=== PATIENT | male | born 1975 | race Caucasian/White ===

== ENCOUNTER 2020-06-20 14:37 | Outpatient (CLI) | payer OTHER, SELFPAY ==
[2020-06-21 13:59] LABS: SARS-CoV-2 RNA PCR Negative
== END 2020-06-20 14:38 | disposition home or self-care (01) ==
PROVIDERS: PCP Family Medicine; Visit Provider Family Medicine
DX: Z20.828 Contact with and (suspected) exposure to other viral communicable diseases (principal)
CPT/HCPCS: 87635; C9803; U0003

== ENCOUNTER 2021-07-09 18:17 | Outpatient (CLI) | payer OTHER, SELFPAY ==
[2021-07-09 18:55] LABS: Hematocrit 45.5 % (40.0-54.0); Hemoglobin 15.5 g/dL (14.0-18.0); Mean Corpuscular HGB Conc 34.1 g/dL (32.0-36.0); Mean Corpuscular Hemoglobin 31.6 pg (27.0-31.0); Mean Corpuscular Volume 92.7 fL (78.0-102.0); Mean Platelet Volume 8.3 fl (8.7-11.0); Platelet Count Result 336 K/mm3 (150-420); Red Blood Count 4.91 M/mm3 (4.70-6.10); Red Cell Distribution Width 11.6 % (11.6-14.4); White Blood Count 6.8 K/mm3 (4.8-10.8)
[2021-07-09 18:58] LABS: Add Urine Microscopic? NO; Appearance Urine Clear (Clear); Bilirubin Urine Negative (Negative); Blood Urine Negative (Negative); Color Urine Light Yellow (Yellow); Glucose Urine UA Negative (Negative); Ketones Urine Negative (Negative); Leukocyte Esterase Ur Negative LEU/UL (Negative); Nitrate Urine Negative (Negative); Protein Urine Negative (Negative); Specific Grav Ur <= 1.005 (1.010-1.020); Urobilinogen Urine 0.2 mg/dL (0.2-1.0)
[2021-07-09 19:21] LABS: Alanine Aminotransferase 35 U/L (16-63); Albumin Level 3.6 g/dL (3.4-5.0); Alkaline Phosphatase 50 U/L (46-116); Anion Gap 9 mmol/L (8-16); Aspartate Amino Transferase 24 U/L (15-37); Bilirubin,Total 0.3 mg/dL (0.00-1.00); Blood Urea Nitrogen 13 mg/dL (7-18); Calcium 8.5 mg/dL (8.5-10.1); Carbon Dioxide 29 mmol/L (21-32); Chloride 101 mmol/L (98-108); Estimated Glomerular Filt Rate > 60; Glucose 91 mg/dL (70-99); Osmolality Calculated 288 mOsm/kg (285-295); Potassium 4.5 mmol/L (3.5-5.1); Sodium 139 mmol/L (136-145); Total Protein 7.5 g/dL (6.4-8.2)
[2021-07-09 19:26] LABS: Band Neutrophils Percent 0 % (0-6); Basophils Percent Manual 3 % (0-1); Eosinophils Absolute Manual 0.06 K/mm3 (0.02-0.5); Eosinophils Percent Manual 1 % (1-6); Lymphocytes Absolute Manual 2.31 K/mm3 (1.1-4.5); Lymphocytes Percent Manual 34 % (18-44); Monocytes Absolute Manual 1.22 K/mm3 (0.1-0.90); Monocytes Percent Manual 18 % (3-9); Neutrophils Absolute Manual 2.99 K/mm3 (1.3-6.7); Neutrophils Percent Manual 44 % (46-73); Platelet Estimate Adequate (Adequate)
[2021-07-09 20:04] LABS: Influenza A QL RT-PCR Negative (Negative); Influenza B QL RT-PCR Negative (Negative); SARS-CoV-2 RNA PCR Negative (Negative)
== END 2021-07-09 18:18 | disposition home or self-care (01) ==
LOC: CHSLAB 18:18
PROVIDERS: PCP Family Medicine; Visit Provider Family Medicine
DX: R50.9 Fever, unspecified (principal); R53.83 Other fatigue; Z20.822 Contact with and (suspected) exposure to COVID-19
CPT/HCPCS: 36415; 80053; 81003; 84443; 85025; 87502; C9803; U0003; U0005

== ENCOUNTER 2021-07-19 08:16 | Outpatient (CLI) | payer OTHER, SELFPAY ==
--- NOTE | ~2021-07-19 | MR_ITS ---
EXAMINATION: MR brain/brain stem wo con DATE: 07/19/2021 09:31 INDICATION: Convulsions TECHNIQUE: Magnetic resonance imaging (MRI) of the brain and brainstem was performed without intraven ous contrast. Sequences included sagittal and axial T1-weighted SE, axial diffusion-weighted FS SE, a xial T2*-weighted GRE, axial T2-weighted FLAIR Propeller, axial T2-weighted Propeller, coronal T2-black ghted FLAIR, and coronal T1-weighted 3D FSPGR. Apparent diffusion coefficient (ADC) maps were created . COMPARISON: None. FINDINGS: There are no areas of restricted diffusion to suggest acute infarction. No intracranial hemorrhage or abnormal intracranial mass lesion. There are scattered areas of nonspecific increased T2-weighted si gnal intensity in the cerebral white matter, predominantly involving the deep and periventricular whi te matter and relatively sparing the temporal lobes. There are approximately 25 lesions on both the l eft and right which is significantly greater than typical for patient age. There are no intraparenchy mal signal abnormalities seen on the other pulse sequences. No godoy matter heterotopias or other evid ent abnormal migrational abnormalities. Bilateral hippocampi are normal and symmetric. The ventricles are symmetric and normal in size. There are no abnormal extra-axial fluid collections. Flow voids ar e seen in the cerebral arteries on the T2-weighted sequences consistent with their expected patency. Mild mucosal thickening in the right sphenoid, left maxillary and bilateral ethmoid sinuses. Visualiz ed orbits and soft tissues are unremarkable. IMPRESSION: 1. Multiple scattered small foci of white matter T2 hyperintensity which are significantly more numer ous than typical for age. Differential would include premature chronic small vessel ischemic disease (especially if the patient has cardiovascular risk factors including diabetes), demyelinating disease such as multiple sclerosis, infection including HIV or Lyme disease, drug abuse or other toxic encep halopathy, vasculitis, or reactive astrocytosis (gliosis) secondary to nonspecific etiology. Reviewed, dictated and finalized at location A. IMPRESSION: 1. Multiple scattered small foci of white matter T2 hyperintensity which are si gnificantly more numerous than typical for age. Differential would include thanh ature chronic small vessel ischemic disease (especially if the patient has card iovascular risk factors including diabetes), demyelinating disease such as mult iple sclerosis, infection including HIV or Lyme disease, drug abuse or other to xic encephalopathy, vasculitis, or reactive astrocytosis (gliosis) secondary to nonspecific etiology.
== END 2021-07-19 08:17 | disposition home or self-care (01) ==
LOC: CHSIMG 08:17
PROVIDERS: PCP Family Medicine; Visit Provider Family Medicine
DX: R56.9 Unspecified convulsions (principal)
CPT/HCPCS: 70551

== ENCOUNTER 2022-06-14 08:42 | Emergency (ER) | payer OTHER, SELFPAY ==
--- NOTE | ~2022-06-14 | XR_ITS ---
EXAMINATION: [id number]_[id number]_CR DATE: 06/14/2022 09:16 INDICATION: Lateral left rib pain post fall TECHNIQUE: A frontal inspiratory view of the chest and 3 views of the left ribs were obtained. COMPARISON: Cervical spine radiographs dated 04/27/2018 FINDINGS: There are 13 paired ribs with bilateral C7 cervical ribs. Instrumented C7-T1 anterior spinal fusion. Nondisplaced fracture of the left eighth (seventh thoracic) rib. Possible additional nondisplaced fra ctures of the left sixth and seventh (fifth and sixth thoracic) ribs. Approximately 2 cm indeterminat e nodular airspace opacity lateral right mid to lower lung zone No other airspace opacities, pleural effusion or pneumothorax. Cardiomediastinal silhouette is normal. IMPRESSION: 1. Nondisplaced left eighth (seventh thoracic) rib fracture with possible additional fractures of the left sixth and seventh ribs. Of note numbering of the ribs is complicated by bilateral cervical ribs at C7 with 12 more caudal paired thoracic ribs. 2. Indeterminate 2 cm nodule in the left mid to lower lung zone which differential would include a br onchogenic carcinoma. Recommend chest CT for further evaluation. Reviewed, dictated and finalized at location A. IMPRESSION: 1. Nondisplaced left eighth (seventh thoracic) rib fracture with possible addit ional fractures of the left sixth and seventh ribs. Of note numbering of the ri bs is complicated by bilateral cervical ribs at C7 with 12 more caudal paired t horacic ribs. 2. Indeterminate 2 cm nodule in the left mid to lower lung zone which different ial would include a bronchogenic carcinoma. Recommend chest CT for further eval uation.
--- NOTE | ~2022-06-14 | CT_ITS ---
EXAMINATION: CT diagnostic chest wo con DATE: 06/14/2022 10:14 INDICATION: right lung nodule, left sided rib fx TECHNIQUE: Computed tomography (CT) of the chest was performed without intravenous contrast. Addition al 3D reconstructions utilizing coronal maximum intensity projection (MIP) were performed. Automated exposure control and iterative reconstruction technique were employed. The dose-length product was 19 3.22 mGy-cm. COMPARISON: None FINDINGS: Mild emphysema. 12 x 11 mm nodule within a cluster of tiny nodules within approximately 2 cm region o f the posterolateral right middle lobe. An additional 2 cm distant in the right middle lobe is an add itional 5 mm nodule. 4 mm right lower lobe nodule. There are a few additional scattered 2 mm smaller nodules in both lungs. No pulmonary edema, pleural effusion or pneumothorax. Heart size is normal. At herosclerotic coronary artery calcification. No pericardial effusion. Thoracic aorta is normal in javon iber. No pathologically enlarged thoracic lymphadenopathy. C6-C7 anterior spinal fusion with plate an d screw fixation. There are bilateral C7 cervical ribs with 12 more caudal paired rib-bearing thoraci c segments. Nondisplaced fractures of the left 6th-8th ribs (fifth-seventh thoracic ribs). IMPRESSION: 1. Cluster of tiny nodules surrounding a larger 12 x 11 mm nodule in the right middle lobe. Appearanc e favors but is not definitive for an infectious/inflammatory etiology. Recommend 8-12 month follow-u p chest CT. Line 2. Nondisplaced fractures of the left 6th-8th ribs (5th-7th thoracic ribs with bilateral paired C7 ce rvical ribs). Reviewed, dictated and finalized at location A. IMPRESSION: 1. Cluster of tiny nodules surrounding a larger 12 x 11 mm nodule in the right middle lobe. Appearance favors but is not definitive for an infectious/inflamma tory etiology. Recommend 8-12 month follow-up chest CT. Line 2. Nondisplaced fractures of the left 6th-8th ribs (5th-7th thoracic ribs with bilateral paired C7 cervical ribs).
[2022-06-14 08:56] VITALS: BP 141/93; PULSE 88; RESP 16; TEMP 36.2; O2SAT 99
--- NOTE | 2022-06-14 09:05 | ED.FALL ---
HPI - Fall General Chief Complaint: Fall Stated Complaint: L sided rib pain after fall Time Seen by Provider: 06/14/22 08:59 Source: patient Mode of arrival: ambulatory Limitations: no limitations History of Present Illness HPI Narrative: Patient is a 46-year-old white male complains of left-sided rib pain after falling last night at home getting into his hot tub. Pain hurts to move and take a deep breath or cough. Denies any shortness of breath nausea vomiting or other symptoms. Did not take anything for pain yet. Denies any loss of consciousness. Dizziness or lightheadedness denied alcohol or illicit drug use. Denies any neck pain or headache. Denies any other injury. Related Data Home Medications Medication Instructions Recorded Confirmed sertraline 100 mg tablet 100 mg PO DAILY 06/14/22 06/14/22 Allergies Allergy/AdvReac Type Severity Reaction Status Date / Time No Known Allergies Allergy Verified 06/14/22 08:59 Review of Systems Review of Systems: All systems reviewed & are unremarkable except as noted in HPI and below Constitutional: Constitutional: Reports no additional constitutional complaints Eyes: Eyes: Reports no additional eye complaints ENT: Reports system reviewed and no additional complaints, except as documented and Reports as per HPI Cardiovascular: Cardiovascular: Reports no additional cardiovascular complaints Respiratory: Respiratory: Reports as per HPI and Reports no additional respiratory complaints Gastrointestinal: Gastrointestinal: Reports no additional gastrointestinal complaints Genitourinary: Genitourinary: Reports no additional male genitourinary complaints Musculoskeletal: Musculoskeletal: Reports no additional musculoskeletal complaints Integumentary/Breasts: Skin/Breast: Reports system reviewed and no additional complaints, except as docu Neurologic: Reports system reviewed and no additional complaints, except as documented, Denies confusion, Denies vertigo, Denies dizziness, Denies syncope, Denies headache(s), Denies focal weakness, Denies numbness and Denies weakness Psychiatric: Psychiatric: Reports no additional psychiatric complaints Endocrine: Endocrine: Reports no additional endocrine complaints Hematologic/Lymphatic: Hematologic/Lymphatic: Reports no additional hematologic/lymphatic complaints [facility] Past Medical History Medical History (Updated 06/14/22 @ 10:55 by Ashwin Roy MD) Anxiety Social History Social History (Updated 06/14/22 @ 09:14 by Ashwin Roy MD) Alcohol intake: current Substance use type: does not use Comments Denies any heart lung or other medical problems. . Exam Narrative: patient is a white male appears in mild distress. Favoring his left side. Head atraumatic normocephalic. Eyes pupils equal round react to light extraocular movements are intact neck is supple without tenderness. Back he has some muscle spasm on the left para scapular region mildly tender. No spinal tenderness. Lungs are clear heart is regular rate and rhythm without murmurs gallops rubs. chest wall Tenderness left lateral chest wall without crepitation or bruising. Abdomen soft nontender extremities no cyanosis clubbing or edema or tenderness he has full range of motion of all extremities. Neurological he is alert and oriented motor and sensory grossly intact. Course Course Emergency Course: Toradol 30 mg im, right ribs and cxr done 13 pairs ribs, left 8th rib fx and 2 cm right lung nodule possible bronchogenic carcinoma Discussed with rad Dr will do CT chest w/o. Discussed with pt as well. Vital Signs Vital signs: Vital Signs Temperature 36.2 C L 06/14/22 08:56 Pulse Rate 88 06/14/22 08:56 Respiratory Rate 16 06/14/22 08:56 Blood Pressure 141/93 H 06/14/22 08:56 Pulse Oximetry 99 06/14/22 08:56 Oxygen Delivery Room Air 06/14/22 08:56 Temperature 36.2 C L 06/14/22 08:56 Pulse Rate 88 06/14/22 08:56
[2022-06-14] MEDS: KETOROLAC 30 MG/ML VIAL (*BKC) IM (09:24)
[2022-06-14 11:15] VITALS: BP 146/95; PULSE 79; RESP 16; TEMP 36.2; O2SAT 98
== END 2022-06-14 11:17 | disposition home or self-care (01) ==
PROVIDERS: Emergency Provider Emergency Medicine
DX: R91.1 Solitary pulmonary nodule (principal); S22.42XA Multiple fractures of ribs, left side, initial encounter for closed fracture; W19.XXXA Unspecified fall, initial encounter
CPT/HCPCS: 71101; 71250; 96372; 99284; J1885

== ENCOUNTER 2023-02-12 22:52 | Emergency (ER) | payer OTHER, SELFPAY ==
[2023-02-12] VITALS (8 sets, daily range): BP systolic 119–138; BP diastolic 81–111; PULSE 81–103; RESP 12–24; TEMP 36.5; O2SAT 93–97
--- NOTE | ~2023-02-12 | XR_ITS ---
EXAMINATION: XR chest 2V DATE: 02/12/2023 23:23 INDICATION: Midline chest pain. Shortness of breath. TECHNIQUE: Frontal and lateral views of the chest were obtained. COMPARISON: Chest CT 06/14/2022, chest radiograph 06/14/2022 FINDINGS: There is a nodule in right middle lobe. No pleural effusion or pneumothorax. The heart size is normal. There are changes of anterior fusion procedure in cervical spine. IMPRESSION: 1. Nodule in right middle lobe, stable from 06/14/2022, probably benign. Noncontrast chest CT is recom mended. Reviewed, dictated and finalized at location E. IMPRESSION: 1. Nodule in right middle lobe, stable from 06/14/2022, probably benign. Noncont rast chest CT is recommended.
--- NOTE | 2023-02-12 22:55 | ECG_ITS ---
Measurements Intervals Superior Rate: 87 P: 71 WA: 177 QRS: 56 QRSD: 89 T: 53 QT: 356 QTc: 431 Interpretive Statements SINUS RHYTHM SHE NORMAL ECG NO PREVIOUS ECG AVAILABLE FOR COMPARISON Electronically Signed On 02-15-2023 9:20:43 CDT by Ashwin Burk M.D.
--- NOTE | 2023-02-12 22:57 | ED.CHESTPAIN ---
HPI - Chest Pain General Chief Complaint: Chest Pain Stated Complaint: trouble breathing; chest pain Time Seen by Provider: 02/12/23 22:56 Source: patient and RN notes reviewed Mode of arrival: ambulatory Limitations: no limitations History of Present Illness complaint: chest pain Onset (ago): hour(s) (2) Timing of current episode: episodic Prior episodes: No Onset: during rest Pain location: substernal Pain radiation: neck Severity: moderate Quality: sharp Relieving factors: nothing Exacerbating factors: nothing Associated symptoms: nausea and dyspnea Treatment prior to arrival: none Risk Factors Coronary artery disease risk factors: smoking history Thoracic aortic dissection risk factors: none Related Data Home Medications Medication Instructions Recorded Confirmed No Home Medications 02/12/23 02/12/23 Allergies Allergy/AdvReac Type Severity Reaction Status Date / Time No Known Allergies Allergy Verified 06/14/22 08:59 Review of Systems Review of Systems: All systems reviewed & are unremarkable except as noted in HPI and below PMFSH Past Medical History Medical History (Updated 02/13/23 @ 00:04 by David Silva MD) Anxiety Social History Social History (Updated 02/12/23 @ 23:03 by David Silva MD) Smoking packs per day: 1 Smoking cigarettes per day: 20.0 Smoking status: Current every day smoker Tobacco type: cigarettes Alcohol intake: current Substance use type: does not use Exam Const: General: healthy appearing, no acute distress and alert Nutritional Appearance: well nourished Orientation/consciousness: patient oriented x3 Limitations: no limitations HENMT: Head: normal to inspection Ears: external ears normal Face/Nose/Sinus: Normal external nose present Face and sinus: normal facial exam Mouth: Yes moist mucous membranes Eyes: Conjunctivae: conjunctivae normal Pupils: Equal, round and reactive pupils present EOM: EOMs intact bilaterally Neck: Neck: normal visual inspection and no lymphadenopathy Resp: Effort & Inspection: normal respiratory effort Auscultation: clear to auscultation bilaterally Cardio: Rate: regular rate Rhythm: regular rhythm GI: GI Palp: Yes Soft to palpation and No Tenderness to palpation present (GI) Auscultation: normal bowel sounds Back/Spine/Pelvis: Cervical Spine: cervical ROM normal Thoracic/Lumbar Spine: thoraco-lumbar ROM normal Skin: General skin exam: normal color Rashes: no rashes Neuro: General: patient oriented x3, moves all extremities, no focal motor deficits and CN's II-XI intact bilaterally Speech: normal speech Gait exam (Neuro): Normal gait present Extrem: General: normal to inspection and no clubbing, cyanosis or edema Psych: Mental Status: mental status grossly normal Affect: Anxious affect present Attitude: cooperative Course Vital Signs Vital signs: Vital Signs Oxygen Delivery Room Air 02/12/23 22:56 Temperature 36.5 C 02/12/23 22:57 Pulse Rate 85 02/12/23 23:45 Respiratory Rate 12 02/12/23 23:45 Blood Pressure 138/81 02/12/23 23:22 Pulse Oximetry 96 02/12/23 23:45 Oxygen Delivery Room Air 02/12/23 22:57 MDM - Chest Pain Differential Diagnosis Differential diagnosis: Likely stable angina, unstable angina pectoris, atypical chest pain, st elevation myocardial infarction, chest pain and other ( Anemia, electrolyte abnormality.) Lab Data Attestation: I reviewed the patient's lab results. 02/12/23 23:07 02/12/23 23:07 Labs: Lab Results 02/12/23 Range/Units 23:07 WBC 9.8 (4.8-10.8) K/mm3 RBC 4.54 L (4.70-6.10) M/mm3 Hgb 14.6 (14.0-18.0) g/dL Hct 43.0 (40.0-54.0) % MCV 94.7 (78.0-102.0) fL MCH 32.2 H (27.0-31.0) pg MCHC 34.0 (32.0-36.0) g/dL RDW 11.6 (11.6-14.4) % Plt Count 306 (150-420) K/mm3 MPV 8.1 L (8.7-11.0) fl Immature Gran % (Auto) 0.4 H (0.0-0.0) % Neut % (Auto) 57.8 (50.0-7
[2023-02-12] MEDS: ASPIRIN 81 MG CHEWABLE TABLET 324 MG PO (23:05)
[2023-02-12 23:11] LABS: Basophils Absolute Auto 0.09 K/mm3 (0.00-0.10); Basophils Percent Auto 0.9 % (0.0-1.0); Eosinophils Absolute Auto 0.52 K/mm3 (0.02-0.50); Eosinophils Percent Auto 5.3 % (1.0-6.0); Hemoglobin 14.6 g/dL (14.0-18.0); Immature Granulocyte Absolute 0.04 K/mm3 (0.00-0.00); Immature Granulocyte Percent A 0.4 % (0.0-0.0); Lymphocytes Absolute Auto 2.63 K/mm3 (1.10-4.50); Lymphocytes Percent Auto 26.9 % (18.0-42.0); Mean Corpuscular Hemoglobin 32.2 pg (27.0-31.0); Mean Corpuscular Volume 94.7 fL (78.0-102.0); Mean Platelet Volume 8.1 fl (8.7-11.0); Monocytes Absolute Auto 0.85 K/mm3 (0.10-0.90); Monocytes Percent Auto 8.7 % (2.0-11.0); Neutrophils Absolute Auto 5.7 K/mm3 (1.7-7.2); Neutrophils Percent Auto 57.8 % (50.0-70.0); Platelet Count Result 306 K/mm3 (150-420); Red Blood Count 4.54 M/mm3 (4.70-6.10); Red Cell Distribution Width 11.6 % (11.6-14.4); White Blood Count 9.8 K/mm3 (4.8-10.8)
[2023-02-12 23:23] LABS: D Dimer 0.19 mg/L (0.19-0.50); INR 0.9; Partial Thromboplastin Time 30.2 SEC (23.90-30.70)
[2023-02-12 23:25] LABS: CRP < 0.5 mg/dL (0.0-0.9)
[2023-02-12 23:28] LABS: Alanine Aminotransferase 27 U/L (16-63); Albumin Level 3.5 g/dL (3.4-5.0); Alkaline Phosphatase 47 U/L (46-116); Anion Gap 11 mmol/L (8-16); Aspartate Amino Transferase 19 U/L (15-37); Bilirubin,Total 0.2 mg/dL (0.00-1.00); Blood Urea Nitrogen 8 mg/dL (7-18); Calcium 8.1 mg/dL (8.5-10.1); Carbon Dioxide 23 mmol/L (21-32); Chloride 98 mmol/L (98-108); Estimated CRCL calculation 115 ml/min; Estimated Glomerular Filt Rate > 60; Glucose 115 mg/dL (70-99); Magnesium 2.1 mg/dL (1.8-2.4); Osmolality Calculated 273 mOsm/kg (285-295); Sodium 132 mmol/L (136-145); Total Protein 6.8 g/dL (6.4-8.2); Troponin I 5.2 ng/L (0.00-60.4)
[2023-02-12] MEDS: POTASSIUM CHLORIDE 20 MEQ PACKET (FOR LIQUID) PO (23:39)
[2023-02-12] MEDS: LORazepam (*CRX) 1 MG TABLET PO (23:39)
== END 2023-02-13 00:11 | disposition home or self-care (01) ==
LOC: CHSED 02-13 00:07
PROVIDERS: Emergency Provider Emergency Medicine
DX: R07.89 Other chest pain (principal); E87.6 Hypokalemia; F17.210 Nicotine dependence, cigarettes, uncomplicated
CPT/HCPCS: 36415; 71046; 80053; 83735; 84484; 85025; 85380; 85610; 85730; 86140; 93005; 99284; A9270

== ENCOUNTER 2023-04-11 09:25 | Emergency (ER) | payer OTHER, SELFPAY ==
--- NOTE | ~2023-04-11 | XR_ITS ---
XR ankle RT min 3V DATE: 04/11/2023 10:07 INDICATION: Fell off of ladder. Pain at distal tibia and fibula TECHNIQUE: 4 views of right ankle COMPARISON: None FINDINGS: The distal tibia and fibula are intact and and the ankle mortise is preserved. No fracture or dislocation of the ankle or disruption of the ankle mortise is detected. There is however a comminuted fracture of the calcaneus. Mild plantar calcaneal enthesopathy. IMPRESSION: Comminuted fracture of the calcaneus Reviewed, dictated and finalized at location A.
--- NOTE | ~2023-04-11 | XR_ITS ---
XR tibia fibula RT 2V DATE: 04/11/2023 10:07 INDICATION: Fell off of ladder. Pain at distal tibia and fibula TECHNIQUE: AP and lateral views COMPARISON: None FINDINGS: There is a comminuted fracture of the calcaneus. No recent fracture or dislocation, periosteal reaction or bone destruction of the tibia or fibula. No rmal alignment at the knee and ankle joints. Moderate generalized soft tissue swelling of the ankle. Mild plantar calcaneal enthesopathy. IMPRESSION: Comminuted calcaneal fracture Reviewed, dictated and finalized at location A.
[2023-04-11 09:25] VITALS: BP 167/96; PULSE 96; RESP 16; TEMP 37.1; O2SAT 98
--- NOTE | 2023-04-11 09:51 | ED.GENADULT ---
HPI - General Adult General Chief complaint: Extremity Injury, Lower Stated complaint: fall; right ankle injury Time Seen by Provider: 04/11/23 09:37 Source: patient History of Present Illness HPI narrative: 47-year-old male presenting with right lower extremity pain. Patient states he was a few steps up on a ladder when he fell off the ladder approximately 12 hours ago. He presents complaining of right lower extremity pain associated with the fall. He denies any other injuries. Onset (ago): hour(s) Location: lower extremity Treatments prior to arrival: none Related Data Allergies Allergy/AdvReac Type Severity Reaction Status Date / Time No Known Allergies Allergy Verified 04/11/23 09:54 [facility] Past Medical History Medical History Anxiety Social History Social History Smoking packs per day: 1 Smoking cigarettes per day: 20.0 Smoking status: Current every day smoker Tobacco type: cigarettes Alcohol intake: current Substance use type: does not use Exam Const: General: cooperative and comfortable HENMT: Head: normal to inspection and normocephalic Ears: hearing grossly normal bilaterally and external ears normal Face/Nose/Sinus: Normal external nose present and Normal nares present Face and sinus: normal facial exam and face symmetric Eyes: General: appearance normal, both eyes and all related structures Visual Arias: visual arias normal by confrontation Neck: Neck: normal visual inspection and full ROM Chest: Chest palpation & inspection: normal inspection of the chest and normal inspection of the chest Resp: Effort & Inspection: normal respiratory effort and able to speak in complete sentences Cardio: Jugular venous distension: no JVD Rate: regular rate GI: Inspection: normal to inspection GI Palp: No abdominal tenderness Back/Spine/Pelvis: Other: Tenderness to palpation of the right lower extremity. No palpable deformities. Appreciable swelling to the right ankle. Otherwise unremarkable skeletal survey Skin: Trauma: no abrasions and no lacerations Other: unremarkable skin survey Neuro: General: patient oriented x3 and tone normal Course Vital Signs Vital signs: Vital Signs Temperature 37.1 C 04/11/23 09:25 Pulse Rate 96 04/11/23 09:25 Respiratory Rate 16 04/11/23 09:25 Blood Pressure 167/96 H 04/11/23 09:25 Pulse Oximetry 98 04/11/23 09:25 Oxygen Delivery Room Air 04/11/23 09:25 Temperature 37.1 C 04/11/23 09:25 Pulse Rate 96 04/11/23 09:25 Respiratory Rate 16 04/11/23 09:25 Blood Pressure 167/96 H 04/11/23 09:25 Pulse Oximetry 98 04/11/23 09:25 Oxygen Delivery Room Air 04/11/23 09:25 Medical Decision Making MDM Narrative Medical decision making narrative: differential diagnosis includes but not limited to soft tissue injury versus fracture versus dislocation. We will evaluate with x-rays. Will administer IM Toradol for pain control. My interpretation official read of imaging is with a Comminuted calcaneal fracture. neurovascularly intact. Will placed in a posterior splint and crutches. May add nonweightbearing. Will have patient follow up in orthopedics. Provided a referral to 1. Also given strict return precautions and follow-up instructions. He feels safe to proceed outpatient management. Medical Records Medical records reviewed: Yes I reviewed the external patient's medical records. Vital Signs Vital Signs: Vital Signs Temperature 37.1 C 04/11/23 09:25 Pulse Rate 96 04/11/23 09:25 Respiratory Rate 16 04/11/23 09:25 Blood Pressure 167/96 H 04/11/23 09:25 Pulse Oximetry 98 04/11/23 09:25 Oxygen Delivery Room Air 04/11/23 09:25 Temperature 37.1 C 04/11/23 09:25 Pulse Rate 96 04/11/23 09:25 Respiratory Rate 16 04/11/23 09:25 Blood Pressure 1
[2023-04-11] MEDS: KETOROLAC 30 MG/ML VIAL (*BKC) IM (10:22)
[2023-04-11 11:10] VITALS: BP 119/61; PULSE 61; RESP 16; TEMP 36.9; O2SAT 100
== END 2023-04-11 11:20 | disposition home or self-care (01) ==
PROVIDERS: Emergency Provider Emergency Medicine; PCP Nurse Practitioner Family
DX: S92.001A Unspecified fracture of right calcaneus, initial encounter for closed fracture (principal); F17.210 Nicotine dependence, cigarettes, uncomplicated; W11.XXXA Fall on and from ladder, initial encounter
CPT/HCPCS: 73590; 73610; 96372; 99284; J1885

== ENCOUNTER 2023-04-15 01:24 | Day surgery (SDC) | payer OTHER, SELFPAY ==
[2023-04-13 15:40] VITALS: BMI 23.7
--- NOTE | 2023-04-13 15:45 | PC.NURSE ---
Report to the Outpatient Waiting Room, entrance under the green pavilion located off [facility], at time 1000 on date 04/15/23. Planned Procedure Time: 1200. Time changes happen often and if your time is changed the preop area will call you the afternoon before. - You and your visitor will be asked to self-screen and do not enter if you have any COVID symptoms. - A mask is optional within the hospital at this time. Patients may have clear liquids (water, carbonated beverages, clear teas, apple juice) until 3 hours prior to surgery with a maximum of 20 ounces. - No food from midnight until time of surgery Take the following medications with a SIP of water the morning of surgery: OXYCODONE IF NEEDED DO NOT STOP ANY OF YOUR OTHER PRESCRIPTION MEDICATIONS PRIOR TO SURGERY ?EXCEPT THE FOLLOWING Medications to discontinue per physician: KETOROLAC Date to take last dose: PER DR. GUSMAN Please no make-up, nail puerto rican, hairspray, perfume, deodorant, or body powder the day of surgery. No jewelry (including any body piercings) or valuables the day of surgery, leave them at home. Please take a shower or bath the night before, or the morning of, surgery with an antibacterial soap. Wear comfortable, loose fitting clothing. Children are encouraged to wear pajamas. - Jewelry must be removed prior to entering the operating room. Rings and piercings that are not removed may be cut off. - The hospital will not accept responsibility for valuables. - Please leave all valuables, including medications, at home the day of surgery. If you are going home after surgery, a licensed lumber driver must drive you home. - NO public transportation without another adult if you receive anesthesia. - We recommend that an adult stay with you for 24 hours following discharge. - We also recommend that you do not drive, make important decision, drink alcoholic beverages, or take any drugs that were not prescribed by your health care provider for at least 24 hours after your discharge time. Follow any additional instructions given to you from your surgeon. If you or anyone in your household have experienced Covid symptoms in the past week, please notify your surgeon or the nurse liaison at the phone number below for possible testing. Telephone instructions given to PT - MARK JENKINS and asked if any additional questions and then verbalized understanding. Patient advised to call surgeon office or pre surgery nurse liaison [phone] if any additional questions.
--- NOTE | 2023-04-14 14:12 | P.PNAN_ITS ---
Anes - Initial Pre Proc Eval Procedure: Operation Date: 04/15/23 12:00 Proposed Procedures p Open Reduction Internal Fixation Right Calcaneus Fracture - Ye Patricia MD s Possible Right Ankle Ligament Repair - Ye Patricia MD Date/Time: 04/14/23 14:12 Surgeon: Ye Patricia MD Pre Op Diagnosis: Rt Calcaneus Fx, Rt Ankle Sprain Patient Data Age: 47 Gender: M Height: 1.91 m Weight: 86.2 kg Allergies Allergy/AdvReac Type Severity Reaction Status Date / Time No Known Allergies Allergy Verified 04/15/23 11:36 Home Medications Medication Instructions Recorded Confirmed Type crutches #1 ea 04/11/23 04/13/23 Rx ketorolac 10 mg tablet 10 mg PO Q6H 3 days #12 tabs 04/11/23 04/13/23 Rx oxycodone 10 mg tablet 10 mg PO Q8H fracture #7 tabs 04/11/23 04/13/23 Rx Patient hx anesthesia problems: none Family hx anesthesia problems: none Results Review: All pre-operative results and documents have been reviewed as part of the pre- operative evaluation. [facility] Past Medical History Medical History (Updated 04/14/23 @ 14:12 by Noel Gil DO) Anxiety Inversion sprain of right ankle DANIEL (obstructive sleep apnea) no CPAP Surgical History Surgical History H/O spinal fusion (~2012) H/O vasectomy (~2006) Social History Social History Smoking packs per day: 1 Smoking cigarettes per day: 20.0 Years smoked: 30 Smoking pack-years: 30.00 Smoking status: Current every day smoker Tobacco type: cigarettes Alcohol intake: current Drinks per week: 4 Substance use: never Substance use type: does not use Living arrangements: with family Occupation/Education: occupation Additional occupation/education comments: [employer] Gender identity (if verbalized by the patient): Male Spiritual care concerns: No Anes - Eval Final PreProcedure Day of Procedure 04/14/23 14:12 Patient weight: normal Heart: regular rate and rhythm Lungs: clear to auscultation Airway: Mallampati scale class II Neurological: alert and oriented Last oral intake: >/= 8 hours ASA classification: III Emergent: no Anesthetic plan: proceed Anesthesia type and monitoring: general LMA and standard monitoring Results Review: All pre-operative results and documents have been reviewed as part of the pre- operative evaluation. Informed Consent: The patient's anesthetic plan and its attendant risks and benefits were discussed with the patient/family/POA. Questions were solicited and answers provided to the satisfaction of the patient/family/POA.
[2023-04-15] VITALS (8 sets, daily range): BP systolic 134–157; BP diastolic 87–96; PULSE 74–93; RESP 12–20; TEMP 37.3–37.4; O2SAT 93–100
--- NOTE | ~2023-04-15 | XR_ITS ---
EXAMINATION: XR surgery orthopedic DATE: 04/15/2023 13:50 INDICATION: ORIF right calcaneal fracture TECHNIQUE: 5 fluoroscopic images of the calcaneus were obtained during procedure performed by Dr. Brittany riddle. Radiologist was not present for the imaging or procedure. The amount of fluoroscopy time used d uring this procedure was 0.9 minutes. COMPARISON: 04/13/2023 FINDINGS: Interval lateral malleable plate and screw fixation of the previous noted comminuted joint depression type fracture of the right calcaneus. There is persistent mild flattening of Boehler's angle. No new fractures identified. Joint spaces at the right ankle and hindfoot appear relatively preserved. IMPRESSION: 1. Plate and screw fixation of a comminuted right calcaneal fracture. See procedure note for further detail. Reviewed, dictated and finalized at location A. IMPRESSION: 1. Plate and screw fixation of a comminuted right calcaneal fracture. See proce dure note for further detail.
--- NOTE | 2023-04-15 07:13 | WPDHPUPDATE1 ---
History and Physical Update Update Date/Time: 04/15/23 07:13 History and Physical has been reviewed, including an updated exam of the patient. There are NO changes in the patient's condition. Risks, benefits, and alternatives have been discussed and questions answered. Patient agrees to proceed with procedure.
[2023-04-15] MEDS: ACETAMINOPHEN 500 MG TABLET 1000 MG PO (11:15)
[2023-04-15] MEDS: LACTATED RINGERS 1,000 ML 30 ML IV CONT ×2 (11:15→14:02)
[2023-04-15] MEDS: KETOROLAC 15 MG/ML VIAL (*BKC) IV PUSH (11:15)
--- NOTE | 2023-04-15 11:46 | W.PM.PROC2 ---
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 Presents for operative treatment. Findings Comminuted intra-articular calcaneus fracture with rotation of the lateral posterior facet portion and tuberosity. Mild varus instability ankle joint. Description of Procedure After informed consent, the operative extremity was marked in the preoperative holding area. Patient received intravenous antibiotics. Patient was then taken to the operating room and underwent general anesthesia by the anesthesia team. They were positioned supine on the operating room table. A time-out was performed confirming the patient, site of the surgery, operative plan. Right Lower extremity then prepped and draped in the usual sterile surgical fashion using ChloraPrep skin solution. Foot and ankle exsanguinated and a thigh tourniquet inflated to 250 mmHg. oblique incision made over the lateral sinus tarsi starting at the distal fibula and extending to the base of the 4th metatarsal with a 15 blade knife. Hemostasis controlled with electrocautery. Full-thickness soft tissue flaps developed and the fascia was incised in line with the skin incision. Musculature elevated anteriorly and the peroneal tendons retracted posteriorly to allow exposure of the sinus tarsi. Fracture identified and cleared with a dental pick, irrigation and rongeur. Fracture reduced and held with bone-holding clamp. Image intensification confirmed reduction of the fracture and the ankle mortise. Fixation achieved with a lateral plate with Locking and nonlocking screws. Good alignment and stability of the fracture noted. Image intensification used to confirm reduction of the fracture and placement of the hardware. articular surface reduction verified visually and with fluoroscopy. Stress of the ankle performed with good stability of the ankle mortise in all directions. Repair of the lateral ankle ligaments not felt to be necessary or indicated. Wound thoroughly irrigated with antibiotic solution. Fascia repaired with 00 Vicryl interrupted suture. Subcutaneous tissue repaired with 000 Monocryl interrupted suture and 0000 nylon running suture. Sterile dressings applied. Patient awoken from anesthesia, extubated and taken to the recovery room in stable condition. All sponge, needle and instrument counts correct at the end of the case. Palpable dorsalis pedis pulse noted prior to dressing. Implants Arthrex lateral calcaneal plate and screws. Estimated Blood Loss 10 Tourniquet Time 100 Drains No Packing No Pathology None sent Complications None Condition Stable Disposition PACU [facility] Billing Surgery - Charge Forward: Surgery Billing ([id number])
[2023-04-15] MEDS: ceFAZolin 2 GM/D5W 50 ML 2 GM/50 ML BAG IVPB (11:55)
[2023-04-15] MEDS: BUPivacaine HCL 0.5% 10 ML AMP 20 ML INFILTRATE (13:43)
== END 2023-04-15 15:38 | disposition home or self-care (01) ==
PROVIDERS: PCP Nurse Practitioner Family; Visit Provider Orthopaedic Surgery
PROC: (CPT 28415; principal; 2023-04-15 12:00)
DX: S92.061A Displaced intraarticular fracture of right calcaneus, initial encounter for closed fracture (principal); M25.371 Other instability, right ankle; W11.XXXA Fall on and from ladder, initial encounter; F41.9 Anxiety disorder, unspecified; G47.33 Obstructive sleep apnea (adult) (pediatric); Z98.1 Arthrodesis status; F17.210 Nicotine dependence, cigarettes, uncomplicated
CPT/HCPCS: 28415; 99199; A9270; J0690; J1100; J1170; J1885; J2250; J2405; J2704; J3010; J7120